=== PATIENT | female | born 1995 | race Caucasian/White ===

== ENCOUNTER 2020-06-10 08:01 | Inpatient (IN) | payer OTHER ==
[2020-06-10 08:37] LABS: HGB 12.1 g/dl (12.5-16.0); MCH 30.2 pg (25.0-31.0); MCHC 34.6 g/dL (32.0-36.0); MCV 87.3 fL (78.0-100.0); MPV 11.9 fL (6.0-9.5); RBC 4.01 M/uL (4.20-5.40); RDW 15.6 % (11.5-14.0); WBC 9.2 K/uL (4.0-10.5)
[2020-06-10 08:43] LABS: AMPHETAMINES NEGATIVE (NEGATIVE); BARBITURATES NEGATIVE (NEGATIVE); ECSTASY (MDMA) NEGATIVE (NEGATIVE); MARIJUANA (THC) NEGATIVE (NEGATIVE); METHADONE NEGATIVE (NEGATIVE); OPIATES NEGATIVE (NEGATIVE); OXYCODONE NEGATIVE (NEGATIVE)
[2020-06-10 11:47] LABS: BILIRUBIN NEGATIVE (NEGATIVE); BLOOD NEGATIVE Ery/uL (NEGATIVE); CLARITY CLEAR (CLEAR); COLOR YELLOW (YELLOW); GLUCOSE (U) NORMAL (NORMAL); LEUKOCYTES NEGATIVE Leu/uL (NEGATIVE); NITRITE NEGATIVE (NEGATIVE); PROTEIN NEGATIVE (NEGATIVE); UROBILINOGEN 0.2 mg/dL (0.2-1.0)
[2020-06-11 05:30] LABS: HCT 30.4 % (37.0-47.0); HGB 10.3 g/dl (12.5-16.0); MCH 30.4 pg (25.0-31.0); MCHC 33.9 g/dL (32.0-36.0); MCV 89.7 fL (78.0-100.0); MPV 12.6 fL (6.0-9.5); RBC 3.39 M/uL (4.20-5.40); RDW 15.7 % (11.5-14.0); WBC 8.4 K/uL (4.0-10.5)
[2020-06-12] MEDS ORDERED: PERCOCET 5-3251 EACH PO (11:15)
[2020-06-12] MEDS ORDERED: COLACE100 MG PO (11:15)
[2020-06-12] MEDS ORDERED: FEOSOL325 MG PO (11:15)
[2020-06-12] MEDS ORDERED: IBUPROFEN800 M1 PO (11:15)
== END 2020-06-12 11:37 | disposition home or self-care (01) | DRG 787 ==
LOC: FOB 08:01
PROVIDERS: ADMIT Obstetrics & Gynecology
PROC: 10D00Z1 Extraction of Products of Conception, Low, Open Approach (ICD-10-PCS; principal; 2020-06-10 08:00)
DX: O34.211 Maternal care for low transverse scar from previous cesarean delivery (principal); D62 Acute posthemorrhagic anemia; O99.12 Other diseases of the blood and blood-forming organs and certain disorders involving the immune mechanism complicating childbirth; Z37.0 Single live birth; O99.02 Anemia complicating childbirth; D69.6 Thrombocytopenia, unspecified; Z3A.40 40 weeks gestation of pregnancy; O99.344 Other mental disorders complicating childbirth; Z20.822 Contact with and (suspected) exposure to COVID-19; F41.9 Anxiety disorder, unspecified; F32.9 Major depressive disorder, single episode, unspecified; G43.909 Migraine, unspecified, not intractable, without status migrainosus
CPT/HCPCS: 36415; 80305; 81003; 86850; 86900; 86901; J0690; J1885; J2274; J2370; J2405; J3010; J7120; U0002